=== PATIENT | male | born 1950 | race Caucasian/White ===

== ENCOUNTER 2024-06-10 14:03 | Outpatient (CLI) | payer OTHER, SELFPAY ==
[2024-06-10] MEDS: PERFLUTREN LIPID MICROSPHERES 2 ML VIAL IVP (16:17)
== END 2024-06-10 14:04 | disposition home or self-care (01) ==
LOC: RAD 14:08
PROVIDERS: PCP Chiropractor; Visit Provider Chiropractor
DX: I25.10 Atherosclerotic heart disease of native coronary artery without angina pectoris (principal); I51.7 Cardiomegaly; I35.1 Nonrheumatic aortic (valve) insufficiency; I34.0 Nonrheumatic mitral (valve) insufficiency
CPT/HCPCS: 93306; Q9957